=== PATIENT | male | born 1950 | race Caucasian/White ===

== ENCOUNTER 2017-03-14 12:39 | Inpatient (IN) | payer MEDICARE, MEDICAID ==
[~2017-03-14] VITALS: Ht 180.3 cm; Wt 87.1 kg
[~2017-03-14 12:39] MED LIST: ALLO100T PO; ATEN50TA PO; BACT800T5 PO; BLOOD PRESSURE XX; CEPH-460 PO; LEVO112T2 PO; LIDO16CR TOP; LOTE20TA PO; NORC5TAB PO; OMEP20TA PO
[2017-03-14] MEDS ORDERED: SODIUM CHLOR 0.9% 1000 ML INJ 1,000 ML IV SCH (13:25)
[2017-03-14] MEDS ORDERED: BISACODYL 10 MG SUPP RECTAL PRN (13:30)
[2017-03-14] MEDS ORDERED: ACETAMINOPHEN/HYDROcodone 325 MG/5 MG TAB PO PRN (13:30)
[2017-03-14] MEDS ORDERED: VANCOMYCIN INJ 1,000 MG in SODIUM CHLOR 0.9% 250 ML INJ 250 ML IV ONE (13:30)
[2017-03-14] MEDS ORDERED: ONDANSETRON HCL 4 MG/2 ML VIAL IVP PRN (13:30)
[2017-03-14] MEDS ORDERED: NALOXONE HCL 0.4 MG/ML AMP IV PRN ×2 (13:30)
[2017-03-14] MEDS ORDERED: SENNOSIDES 8.6 MG TAB PO PRN (13:30)
[2017-03-14] MEDS ORDERED: LACTULOSE SYRUP 20 GM/30 ML CUP PO PRN (13:30)
[2017-03-14] MEDS ORDERED: ACETAMINOPHEN 325 MG TAB PO PRN ×2 (13:30)
[2017-03-14] MEDS ORDERED: SODIUM CHLORIDE 0.9% FLUSH 10 ML FLUSH IV FLUSH PRN (13:30)
[2017-03-14] MEDS ORDERED: MORPHINE SULFATE 4 MG/ML INJ IV PRN (13:30)
[2017-03-14] MEDS ORDERED: TEMAZEPAM 15 MG CAP PO PRN (13:30)
[2017-03-14] MEDS ORDERED: MAGNESIUM HYDROXIDE SUSP 30 ML CUP PO PRN (13:30)
[2017-03-14] MEDS ORDERED: LIDOCAINE HCL 2% 50 ML VIAL ONE (13:45)
[2017-03-14] MEDS ORDERED: cloNIDine HCL 0.1 MG TAB PO PRN (13:45)
[2017-03-14] MEDS ORDERED: Vancomycin Consult Pharmacy 1 EA OTHER SCH (14:00)
--- NOTE | 2017-03-14 14:07 | HHI.HP ---
[facility] Haydee Julio MD Admission Diagnosis Diagnoses: (1) Abscess of finger of left hand Diagnosis: Principal Chief Complaint: Finger pain and swelling Travel History International Travel<30 Days: No Contact w/Intl Traveler <30 Da: No Traveled to Known Affected Are: No History of Present Illness Written by Abdiaziz Conley, acting as scribe for Dr. Burkett on 03/14/17 at 14: 03. 66 year-old male with known history of hypertension, hypothyroidism, gout, history of squamous cell carcinoma of the neck, anemia, chronic kidney disease stage III who presented to hospital because of left hand fourth digit pain and swelling. Patient states that Tuesday when he was mowing the grass he went to move something and he did notice anything that time but then later on that day his finger started itching and then developed a lump he tried to squeeze the lump but nothing came out. It progressively got worse so he went to emergency department and was started on Bactrim and Keflex. He was given a tetanus shot at that time. He took 3 days worth of antibiotics and did not improve so he came to the emergency department again for evaluation. Because he return to emergency department prior to completion of antibiotics and his finger still had significant swelling and erythema is recommended by the ER physician that the patient be admitted for failed outpatient management. Patient is afebrile, no leukocytosis, no signs of sepsis Review of Systems Integumentary: COMPLAINS OF: Abnormal pigmentation Except as stated in HPI: all other systems reviewed are Neg Past Family Social History Past Medical History Hypertension Chronic kidney disease stage III Anemia chronic disease History squamous cell carcinoma right side of the neck status post chemotherapy radiation from [id number] Gout Hypothyroidism Past Surgical History EGD in 2015 Right ankle surgery 1986 with pins Reported Medications Reported Meds & Active Scripts Active [place] (Hydrocodone-Acetaminophen) 5-325 mg Tab 1 Tab PO Q4H PRN Lotensin (Benazepril HCl) 20 Mg Tab 20 Mg PO DAILY Atenolol 50 Mg Tab 50 Mg PO DAILY Allopurinol 100 Mg Tab 100 Mg PO BID Aspercreme w/ Lidocaine Topical (Lidocaine) 4 % Cream 1 Applic TOP DIRECTED PRN Uses as per packaging instructions Levothyroxine (Levothyroxine Sodium) 112 Mcg Tab 112 Mcg PO DAILY Reported Blood Pressure Kit/Stethoscope 1 Kit Kit 1 Ea XX HS PRN Allergies: Coded Allergies: No Known Allergies (Unverified , 03/14/17) Family History Reviewed is significant for father at age 76 from T-cell lymphoma, mother still alive at age 91 with hypertension Social History Patient states that he may have smoked a little when he was a teenager but he has not smoked since then. He drinks approximately 2 coconut rum drinks daily. Does use marijuana occasionally Physical Exam Physical Exam GENERAL: Well-developed, well-nourished, in no acute distress. alert and orientated HEENT: Head is normocephalic without any lesions or masses noted. Facial features are symmetric. Eyes: Pupils equal round reactive to light. Extraocular muscles are intact. Conjunctivae were clear. Oropharyngeal: Pharynx without any erythema edema. Tongue is midline without deviation. Buccal mucosa is moist without any masses or lesions NECK: Supple without any masses. Trachea midline no deviation. No JVD, no bruits are appreciated CARDIAC: Regular rhythm, regular rate. S1/S2 are heard. No murmurs gallops or rubs. LUNGS: Clear to auscultation bilaterally. No wheeze, rhonchi or rales. No use of accessory muscles on inspiration or expiration. ABDOMEN: Soft, nontender. Nondistended. Bowel sounds heard in all 4 quadrants. No organomegaly or masses. Negative rebound, negative guarding EXTREMITIES: No edema, pulses are equal bilaterally. No cyanosis or clubbing NEUROLOGY: Mood and affect appear appropriate. Cranial nerves II through XII grossly intact. Muscle strength 5/5 in upper and lower extremities bilaterally. Deep tendon reflexes are 2+ in upper and lower extremities bilaterally. LEFT HAND: Fourth digit between the MCP/PIP joint patient has significant erythema, edema, signs of infection, fluctuance noted on the volar surface. With serosanguineous drainage Caprini VTE Risk Assessment Caprini VTE Risk Assessment: Mod/High Risk (score >= 2) Caprini Risk Assessment Model Point Value = 1 Point Value = 2 Point Value = 3 Point Value = 5 Age 41-60 Minor surgery BMI > 25 kg/m2 Swollen legs Varicose veins or History of unexplained or recurrent spontaneous Oral contraceptives or hormone replacement Sepsis (< 1 month) Serious lung disease, including pneumonia (< 1 month) Abnormal pulmonary function Acute myocardial infarction Congestive heart failure (< 1 month) History of inflammatory bowel disease Medical patient at bed rest Age 61-74 Arthroscopic surgery Major open surgery (> 45 min) Laparoscopic surgery (> 45 min) Malignancy Confined to bed (> 72 hours) Immobilizing plaster cast Central venous access Age >= 75 History of VTE Family history of VTE Factor V Leiden Prothrombin [id number] Lupus anticoagulant Anticardiolipin antibodies Elevated serum homocysteine Heparin-induced thrombocytopenia Other congenital or acquired thrombophilia Stroke (< 1 month) Elective arthroplasty Hip, pelvis, or leg fracture Acute spinal cord injury (< 1 month) Prophylaxis Regimen Total Risk Factor Score Risk Level Prophylaxis Regimen 0-1 Low Early ambulation 2 Moderate Order ONE of the following: *Sequential Compression Device (SCD) *Heparin 5000 units SQ BID 3-4 Higher Order ONE of the following medications: *Heparin 5000 units SQ TID *Enoxaparin/Lovenox 40 mg SQ daily (WT < 150 kg, CrCl > 30 mL/min) *Enoxaparin/Lovenox 30 mg SQ daily (WT < 150 kg, CrCl > 10-29 mL/min) *Enoxaparin/Lovenox 30 mg SQ BID (WT < 150 kg, CrCl > 30 mL/min) AND/OR *Sequential Compression Device (SCD) 5 or more Highest Order ONE of the following medications: *Heparin 5000 units SQ TID (Preferred with Epidurals) *Enoxaparin/Lovenox 40 mg SQ daily (WT < 150 kg, CrCl > 30 mL/min) *Enoxaparin/Lovenox 30 mg SQ daily (WT < 150 kg, CrCl > 10-29 mL/min) *Enoxaparin/Lovenox 30 mg SQ BID (WT < 150 kg, CrCl > 30 mL/min) AND *Sequential Compression Device (SCD) Assessment and Plan Problem List: (1) Abscess of finger of left hand ICD Code: L02.512 - Cutaneous abscess of left hand Plan: 66 year-old male presents with left hand fourth digit cellulitis/abscess which failed outpatient management with Bactrim and Keflex. Patient reevaluated in emergency department and recommended admission for further management. Contacted hand specialist who saw the patient at bedside and did bedside incision and drainage. Will continue monitor the patient overnight and likely discharge tomorrow if improved. We'll start vancomycin. Continue pain control Assessment and Plan Other chronic medical illness include hypertension, hypothyroidism, gout: We'll continue patient's home medications DVT prevention: Sequential compression devices Medical Decision Making Impression and Plan This note was transcribed by ana yusuf I, Dr. Catalina Burkett personally performed the history, physical exam, and medical decision making; and confirmed the accuracy of the information in the transcribed note. discussed with hand surgery Authenticated by Dr. Catalina Burkett on 03/14/17 at 14:08. Abdiaziz Conley Mar 14, 2017 14:07 Catalina Burkett MD Mar 14, 2017 14:08
--- NOTE | 2017-03-14 15:19 | MB ---
cc: RODRIGO SERRANO III, M.D. DATE OF CONSULTATION: 03/14/2017 HISTORY OF PRESENT ILLNESS The patient is a very friendly 66-year-old gentleman who was transferred here from [place] with a left ring finger infection. He has failed outpatient treatment, Bactrim and Keflex. He returned today with increased swelling and discharge and pain in that finger. PAST MEDICAL HISTORY 1. Hypertension. 2. Renal cancer. 3. Chemotherapy. 4. Hypertension. 5. Thyroid disease. 6. History of cancer in his neck. ALLERGIES NO KNOWN DRUG ALLERGIES. MEDICATION 1. [place]. 2. Bactrim. 3. Keflex. 4. Lotensin. 5. Allopurinol. 6. Atenolol. 7. Levothyroxine. ALLERGIES NO KNOWN DRUG ALLERGIES. SOCIAL HISTORY He does not smoke. REVIEW OF SYSTEMS Patient is not complaining of any headaches or double or blurred vision. He is not complaining of any coughing, wheezing or shortness breath. Not complaining of any chest pain or palpitations. Not complaining of any spine, neck or back pain. Not complaining of any burning, frequency or urgency with urination. Not complaining of any nausea, vomiting, abdominal pain. He is not complaining of any lesions, rashes or eruptions on his skin except for his left ring finger. He is not complaining of any night sweats, fevers or chills. He is not complaining of any anxiety, depression or suicidal ideations. IMAGING STUDIES X-rays of his finger were performed and reviewed in the hospital. These reveal no fractures, foreign bodies or dislocations. He does have arthritic changes in all the fingers and the thumb, especially at the first CMC joint. LABORATORY DATA Laboratory studies reveal white blood cell count of 10.3 thousand, hemoglobin 14.3 gm/dl, platelet count 266,000, BUN and creatinine are 39 and 2.40. PHYSICAL EXAMINATION GENERAL: Well-developed, well-nourished, in no apparent distress very pleasant, awake and alert and oriented in his bed x3. LEFT UPPER EXTREMITY: Reveals full active range of motion throughout with the exception of left ring finger which is stiff because of the edema and the swelling on the dorsal aspect of the finger where there is localized abscess on the dorsal aspect of the proximal phalanx. There is fluctuance. There is no spontaneous drainage. There is erythema. Neurovascularly intact. All musculotendinous units are intact. Capillary refill is less than 2 seconds in all fingertips. There is no proximal streaking. There is no epitrochlear or axillary adenopathy palpable. IMPRESSION Left ring finger abscess. PLAN Plan is for a bedside incision and drainage. I discussed this with the patient and he has provided informed written consent. He agrees and wishes to proceed. MD MARLI Ruelas III/SYD /2:07 PM /2:58 PM
[2017-03-14] MEDS: ACETAMINOPHEN/HYDROcodone 325 MG/10 MG TAB PO PRN ×2 (15:40→21:57)
[2017-03-14 16:00] VITALS: BP 121/72; PULSE 61; RESP 19; TEMP 97.6; O2SAT 98
[2017-03-14] MEDS ORDERED: VANCOMYCIN INJ 1,600 MG in SODIUM CHLORID 0.9% 500 ML INJ 500 ML IV SCH (16:00)
[2017-03-14 20:00] VITALS: BP 109/71; PULSE 54; RESP 20; TEMP 98.1; O2SAT 95
[2017-03-14] MEDS: SODIUM CHLORIDE 0.9% FLUSH 10 ML FLUSH IV FLUSH SCH (21:00)
[2017-03-14] MEDS: DOCUSATE SODIUM 50 MG/SENNA 8.6 MG TAB PO SCH (21:57)
[2017-03-14] MEDS: ALLOPURINOL 100 MG TAB PO SCH (21:57)
[2017-03-14] MEDS ORDERED: ATENOLOL 50 MG TAB PO SCH (22:30)
[2017-03-14] MEDS ORDERED: LISINOPRIL 20 MG TAB PO SCH (22:30)
[2017-03-15] VITALS: BP 101/67; PULSE 52; RESP 18; TEMP 96.9; O2SAT 96
[2017-03-15] MEDS ORDERED: LEVOTHYROXINE SODIUM 112 MCG TAB PO SCH (06:00)
[2017-03-15 08:00] VITALS: BP 143/91; PULSE 55; RESP 18; TEMP 97; O2SAT 99
[2017-03-15] MEDS ORDERED: ATENOLOL 50 MG TAB PO SCH (09:00)
[2017-03-15] MEDS ORDERED: LISINOPRIL 20 MG TAB PO SCH (09:00)
--- NOTE | 2017-03-15 09:45 | MP ---
cc: SARKIS PEREZ III, M.D. DATE OF SURGERY 03/14/2017 PREOPERATIVE DIAGNOSIS Left ring finger abscess. PROCEDURE Left ring finger abscess incision and drainage. SURGEON Sarkis Perez III, MD PROCEDURE The patient was made comfortable in his bed in his room. He provided informed written consent. The left ring finger was prepped and 2% plain lidocaine was injected superficially into the skin on the dorsal aspect of the ring finger proximal to the abscess. A 1-cm longitudinal incision was made. Purulence was encountered and sampled and sent as specimen. The wound was thoroughly cleansed. The hand was then cleansed and dried. Packing was then placed within the wound and the finger and the hand dressed. The patient tolerated the procedure well. There was no bleeding. Hemostasis was present. Capillary refill is less than 2 seconds in the fingertips the entire time. The patient tolerated the procedure well. MD MARLI Ruelas III/ANTHONY /2:12 PM /9:35 AM
[2017-03-15] MEDS: ALLOPURINOL 100 MG TAB PO SCH (09:52)
[2017-03-15] MEDS: SODIUM CHLORIDE 0.9% FLUSH 10 ML FLUSH IV FLUSH SCH (09:52)
[2017-03-15] MEDS: DOCUSATE SODIUM 50 MG/SENNA 8.6 MG TAB PO SCH (09:52)
[2017-03-15] MEDS ORDERED: NORC5TAB PO (10:45)
[2017-03-15] MEDS ORDERED: CLIN1CAP6 PO (10:45)
[2017-03-15] MEDS ORDERED: SULF1TAB23 PO (10:45)
--- NOTE | 2017-03-15 10:46 | HHI.DCPOC ---
Discharge Care Plan Diagnosis: (1) Abscess of finger of left hand Goals to Promote Your Health * To prevent worsening of your condition and complications * To maintain your health at the optimal level Directions to Meet Your Goals Take your medications as prescribed Follow your dietary instruction Follow activity as directed Keep your appointments as scheduled Take your immunizations and boosters as scheduled If your symptoms worsen call your PCP, if no PCP go to Urgent Care Center or Emergency Room Smoking is Dangerous to Your Health. Avoid second hand smoke Call the 24-hour hour crisis hotline for domestic abuse at Catalina Burkett MD Mar 15, 2017 10:46
--- NOTE | 2017-03-15 10:48 | HHI.DS ---
Discharge Summary Admission Date Mar 14, 2017 at 13:35 Discharge Date: Mar 15, 2017 Admitting Diagnosis (1) Abscess of finger of left hand ICD Code: L02.512 - Cutaneous abscess of left hand Procedures bedside I and D Brief History - From Admission Written by Abdiaziz Conley, acting as scribe for Dr. Burkett on 03/14/17 at 14: 03. 66 year-old male with known history of hypertension, hypothyroidism, gout, history of squamous cell carcinoma of the neck, anemia, chronic kidney disease stage III who presented to hospital because of left hand fourth digit pain and swelling. Patient states that Tuesday when he was mowing the grass he went to move something and he did notice anything that time but then later on that day his finger started itching and then developed a lump he tried to squeeze the lump but nothing came out. It progressively got worse so he went to emergency department and was started on Bactrim and Keflex. He was given a tetanus shot at that time. He took 3 days worth of antibiotics and did not improve so he came to the emergency department again for evaluation. Because he return to emergency department prior to completion of antibiotics and his finger still had significant swelling and erythema is recommended by the ER physician that the patient be admitted for failed outpatient management. Patient is afebrile, no leukocytosis, no signs of sepsis Significant Findings Bedside I&D per hand surgery PE at Discharge Left index finger improved edema and erythema status post I&D GENERAL: This is a well-nourished, well-developed patient, in no apparent distress. CARDIOVASCULAR: Regular rate and rhythm without murmurs, gallops, or rubs. RESPIRATORY: Clear to auscultation. Breath sounds equal bilaterally. No wheezes , rales, or rhonchi. GASTROINTESTINAL: Abdomen soft, non-tender, nondistended. Normal active bowel sounds MUSCULOSKELETAL: Extremities without clubbing, cyanosis, or edema. NEURO: Alert & Oriented x4 to person, place, time, situation. Moves all ext x4 Pt update on day of discharge Patient seen in follow-up for discharge plans status post I&D of left index finger abscess. Overall improved discharge plans discussed with him he is agreeable Hospital Course Patient is a 66-year-old gentleman who was monitored for abscess of the left index finger and is now status post I&D. He had some outpatient antibiotics and noted increased erythema and edema of the finger and came to the emergency room. He did see the hand surgeon bedside I&D was performed. Sandeep pus was removed and the patient continued on IV antibiotics overnight. His improvement is dramatic and the patient be discharged on oral antibiotics Pt Condition on Discharge: Good Discharge Disposition: Discharge Home Discharge Time: <= 30 minutes Discharge Instructions DIET: Follow Instructions for: As Tolerated, No Restrictions Activities you can perform: Regular-No Restrictions New Medications: Clindamycin (Clindamycin) 300 Mg Cap 300 MG PO TID for Infection, #21 CAP 0 Refills Sulfamethoxazole-Trimethoprim (Sulfamethoxazole-Trimethoprim) 800-160 Mg Tab 1 TAB PO BID for Infection, #14 TAB 0 Refills Continued Medications: Allopurinol (Allopurinol) 100 Mg Tab 100 MG PO BID for Gout, #60 TAB 1 Refill Atenolol (Atenolol) 50 Mg Tab 50 MG PO DAILY for Blood Pressure Management, #90 TAB 5 Refills Benazepril (Lotensin) 20 Mg Tab 20 MG PO DAILY for Blood Pressure Management, #90 TAB 0 Refills Hydrocodone-Acetaminophen ([place]) 5-325 mg Tab 1 TAB PO Q4H PRN for PAIN, #20 TAB 0 Refills (This prescription has been renewed ) Levothyroxine (Levothyroxine) 112 Mcg Tab 112 MCG PO DAILY for Thyroid, #90 TAB 1 Refill Lidocaine Topical (Aspercreme w/ Lidocaine Topical) 4 % Cream 1 APPLIC TOP DIRECTED PRN for back pain, #1 TUBE 2 Refills Uses as per packaging instructions Catalina Burkett MD Mar 15, 2017 10:48
[2017-03-15 12:00] VITALS: BP 112/73; PULSE 56; RESP 18; TEMP 97.7; O2SAT 96
--- NOTE | 2017-03-15 14:29 | HHI.PR ---
Subjective Remarks feeling better Objective Vital Signs Date Time Temp Pulse Resp B/P (MAP) Pulse Ox O2 Delivery O2 Flow Rate FiO2 03/15/17 12:00 97.7 56 18 112/73 (86) 96 03/15/17 09:45 Room Air 03/15/17 08:00 97.0 55 18 143/91 (108) 99 03/15/17 04:00 Room Air 03/15/17 00:00 96.9 52 18 101/67 (78) 96 03/15/17 00:00 Room Air 03/14/17 20:00 Room Air 03/14/17 20:00 98.1 54 20 109/71 (84) 95 03/14/17 16:00 97.6 61 19 121/72 (88) 98 I/O 03/14/17 03/14/17 03/14/17 03/15/17 03/15/17 03/15/17 06:59 14:59 22:59 06:59 14:59 22:59 Intake Total 516 ml 1000 ml 2 ml Balance 516 ml 1000 ml 2 ml Intake IV Total 516 ml 1000 ml 2 ml # Voids 1 # Bowel Movements 1 Objective Remarks left ring finger healing; no acute infection; no purulence; edema resolved; erythema in healing state Assessment and Plan Problem List: (1) Abscess of finger of left hand ICD Codes: L02.512 - Cutaneous abscess of left hand Plan: ok to d/c on PO abx d/c packing when he can no longer pack it band aid over wound Sarkis Perez III, MD Mar 15, 2017 14:29
[2017-03-19] MEDS ORDERED: VANCOMYCIN TROUGH ONE (03:45)
[2017-04-01] MEDS ORDERED: LEVO112T2 PO (08:05)
== END 2017-03-15 16:32 | disposition home or self-care (01) | DRG 603 ==
LOC: PHEDDLT 12:39 → PH3B 12:49 → OBSVTOIN 13:35
PROVIDERS: ADMIT Family Medicine; ATTEND Family Medicine
PROC: 0H9GXZZ Drainage of Left Hand Skin, External Approach (ICD-10-PCS; principal; 2017-03-14)
DX: L02.512 Cutaneous abscess of left hand (principal); N18.3 Chronic kidney disease, stage 3 (moderate); I12.9 Hypertensive chronic kidney disease with stage 1 through stage 4 chronic kidney disease, or unspecified chronic kidney disease; E03.9 Hypothyroidism, unspecified; M10.9 Gout, unspecified; L03.012 Cellulitis of left finger; D63.8 Anemia in other chronic diseases classified elsewhere; Z85.828 Personal history of other malignant neoplasm of skin; Z92.21 Personal history of antineoplastic chemotherapy; Z92.3 Personal history of irradiation; Z85.528 Personal history of other malignant neoplasm of kidney
CPT/HCPCS: 73140; 80053; 83605; 85025; 86403; 87040; 87070; 87147; 87186; 87205; 99281; J2270; J3370; J7030; J7040